=== PATIENT | female | born 1985 | race Caucasian/White ===

== ENCOUNTER 2016-09-14 13:46 | Emergency (ER) | payer OTHER ==
[~2016-09-14] VITALS: Ht 167.6 cm; Wt 68.0 kg
[~2016-09-14 13:46] MED LIST: BACTRIM DS 8001 TA1 PO; FLEXERIL10 MG PO; HYDROCODONE BIT1 T11 PO; MOTRIN800 MG PO; NAPROSYN500 MG PO; PREDNICOT20 MG PO; PYRIDIUM200 MG PO
[2016-09-14] MEDS ORDERED: CEPHALEXIN500 M1 PO (16:17)
== END 2016-09-14 16:26 | disposition home or self-care (01) ==
LOC: ED 13:46
DX: S99.921A Unspecified injury of right foot, initial encounter (principal); F17.200 Nicotine dependence, unspecified, uncomplicated; W22.8XXA Striking against or struck by other objects, initial encounter; Y93.9 Activity, unspecified; Y92.9 Unspecified place or not applicable; Y99.9 Unspecified external cause status